=== PATIENT | female | born 2000 | race Caucasian/White ===

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

== ENCOUNTER → 2020-01-20 09:15 | Outpatient (BNVA) | payer BC, SELFPAY | PROVIDERS: Family Provider Family Medicine; PCP Internal Medicine Rheumatology; Visit Provider Internal Medicine | DX: M08.00 Unspecified juvenile rheumatoid arthritis of unspecified site (principal); D86.9 Sarcoidosis, unspecified; M32.9 Systemic lupus erythematosus, unspecified | CPT/HCPCS: 99203; 99204 ==

== ENCOUNTER 2020-01-20 14:45 | Outpatient (CLI) | payer BC, SELFPAY ==
[2020-01-20 15:34] LABS: Basophils # 0.1 10^3/uL (0.0-0.1); Basophils % 1.2 %; Eosinophils # 0.3 10^3/uL (0.0-0.8); Eosinophils % 5.4 %; Hematocrit 44.2 % (37.0-47.0); Hemoglobin 14.4 g/dL (11.5-15.3); Lymphocytes # 2.1 10^3/uL (1.5-6.5); Mean Corpuscular HGB Conc 32.6 g/dL (30.0-36.0); Mean Corpuscular Hemoglobin 27.8 pg (28.0-34.0); Mean Corpuscular Volume 85.3 fL (81-99); Mean Platelet Volume 10.9 fL (7.4-10.4); Monocytes # 0.3 10^3/uL (0.2-0.9); Monocytes % 6.4 %; Neutrophils # 2.36 10^3/uL (1.8-8.0); Neutrophils % 45.8 %; Nucleated Red Blood Cells % 0 %; Platelet Count 242 10^3/cmm (130-400); Red Blood Count 5.18 10^6/uL (4.1-5.3); Red Cell Distribution Width 11.9 % (12.1-15.1); White Blood Count 5.2 10^3/uL (4.5-13.0)
== END 2020-01-20 14:46 | disposition home or self-care (01) ==
LOC: LAB 14:50
PROVIDERS: PCP Nurse Practitioner; Visit Provider Nurse Practitioner
DX: Z00.00 Encounter for general adult medical examination without abnormal findings (principal); M08.00 Unspecified juvenile rheumatoid arthritis of unspecified site; D86.9 Sarcoidosis, unspecified
CPT/HCPCS: 36415; 81025; 85025; 87491; 87591; 87661

== ENCOUNTER 2020-01-20 14:50 | Outpatient (CLI) | payer BC, SELFPAY ==
[2020-01-20 15:55] LABS: Alanine Aminotransferase 19 U/L (0-33); Albumin Level 4.4 g/dL (3.5-5.2); Alkaline Phosphatase 78 IU/L (35-105); Anion Gap 13.8 (5-19); Aspartate Amino Transferase 23 U/L (0-32); Blood Urea Nitrogen 11 mg/dL (6-20); Calcium 9.6 mg/dL (8.5-10.5); Carbon Dioxide 25 mmol/L (22-29); Chloride 103 mmol/L (98-107); Globulin 3.3 g/dL (1.3-4.6); Glomerular Filtration Rate 107.8 mL/min (90-130); Glucose 87 mg/dL (65-115); Osmolality Calculated 285 mOsm/kg (285-295); Potassium 3.8 mmol/L (3.5-5.1); Sodium 138 mmol/L (136-145); Total Bilirubin 0.4 mg/dL (0.15-1.2); Total Protein 7.7 g/dL (6.6-8.7)
[2020-01-20 16:11] LABS: Hepatitis B Core AB, Total Non-Reactive (Nonreactive); Hepatitis B Surface Antigen Non-Reactive (Nonreactive); Hepatitis C Virus Antibody Non-Reactive (Nonreactive)
[2020-01-20 18:21] LABS: Erythrocyte Sedimentation Rate 10 mm/hr (0-15)
[2020-01-23 11:47] LABS: COMPLEMENT COMPONENT C3C 154 mg/dL (83-193); COMPLEMENT COMPONENT C4C 25 mg/dL (15-57); Quantiferon Mitogen >10.00 IU/mL; Quantiferon Nil 0.02 IU/mL; Quantiferon TB Gold NEGATIVE (NEGATIVE)
[2020-01-23 12:47] LABS: COMPLEMENT, TOTAL (CH50) >60 U/mL (31-60)
[2020-01-23 14:13] LABS: Cyclic Citrullinated Peptide <16 UNITS
[2020-01-23 19:43] LABS: HLA-B27 NEGATIVE (NEGATIVE)
[2020-01-24 14:28] LABS: ANA SCREEN, IFA NEGATIVE (NEGATIVE); CENTROMERE B ANTIBODY <1.0 NEG AI (<1.0 NEG); JO-1 ANTIBODY <1.0 NEG AI (<1.0 NEG); RNP ANTIBODY <1.0 NEG AI (<1.0 NEG); SCL-70 ANTIBODY <1.0 NEG AI (<1.0 NEG); SJOGREN'S ANTIBODY (SS-A) <1.0 NEG AI (<1.0 NEG); SM ANTIBODY <1.0 NEG AI (<1.0 NEG)
[2020-01-24 14:58] LABS: Factor Viii, Activity 71 % normal (50-180); Partial Thromboplastin Time, A 33 sec (22-34); Von Willebrand Factor Ag 108 % (50-217)
[2020-01-24 15:28] LABS: Von Willebrand Factor (Rcf) 105 % normal (42-200)
[2020-01-24 15:58] LABS: THYROID PEROXIDASE ANTIBODIES 75 IU/mL (<9)
[2020-01-27 15:07] LABS: DNA AB (DS) CRITHIDIA,IFA NEGATIVE (NEGATIVE)
== END 2020-01-20 14:51 | disposition home or self-care (01) ==
LOC: LAB 14:53
PROVIDERS: PCP Nurse Practitioner; Visit Provider Internal Medicine
DX: M08.00 Unspecified juvenile rheumatoid arthritis of unspecified site (principal); D86.9 Sarcoidosis, unspecified
CPT/HCPCS: 36415; 80053; 85240; 85245; 85246; 85651; 86431; 86480; 86704; 86803; 86812; 87340

== ENCOUNTER → 2020-09-06 08:57 | Outpatient (BNVA) | payer SELFPAY | PROVIDERS: PCP Nurse Practitioner; Visit Provider Internal Medicine | DX: Z79.899 Other long term (current) drug therapy (principal); M08.00 Unspecified juvenile rheumatoid arthritis of unspecified site | CPT/HCPCS: 36415; 80053; 85025; 85651; 86140 ==

== ENCOUNTER → 2020-09-13 14:29 | Outpatient (BNVA) | payer OTHER, SELFPAY | PROVIDERS: PCP Nurse Practitioner; Visit Provider Internal Medicine | DX: M08.00 Unspecified juvenile rheumatoid arthritis of unspecified site (principal); Z79.899 Other long term (current) drug therapy | CPT/HCPCS: 99213; 99214 ==

== ENCOUNTER → 2020-10-10 14:29 | Outpatient (BNVA) | payer OTHER, SELFPAY | PROVIDERS: PCP Nurse Practitioner; Visit Provider Nurse Practitioner | DX: R30.9 Painful micturition, unspecified (principal); Z91.89 Other specified personal risk factors, not elsewhere classified; N30.90 Cystitis, unspecified without hematuria | CPT/HCPCS: 81000; 81025; 87086; 87491; 87591; 87661 ==

== ENCOUNTER → 2020-10-24 10:04 | Outpatient (BNVA) | payer OTHER, SELFPAY | PROVIDERS: PCP Nurse Practitioner; Visit Provider Nurse Practitioner Women's Health | DX: N92.6 Irregular menstruation, unspecified (principal); Z11.3 Encounter for screening for infections with a predominantly sexual mode of transmission; Z01.419 Encounter for gynecological examination (general) (routine) without abnormal findings; Z30.014 Encounter for initial prescription of intrauterine contraceptive device | CPT/HCPCS: 84146; 84443; 84702; 87491; 87591; 87661 ==

== ENCOUNTER → 2020-10-30 14:02 | Outpatient (BNVA) | payer OTHER, SELFPAY | PROVIDERS: PCP Nurse Practitioner; Visit Provider Internal Medicine | DX: M08.00 Unspecified juvenile rheumatoid arthritis of unspecified site (principal); Z79.899 Other long term (current) drug therapy | CPT/HCPCS: 99213; 99214 ==

== ENCOUNTER → 2020-11-09 11:53 | Outpatient (BNVA) | payer OTHER, SELFPAY | PROVIDERS: PCP Nurse Practitioner; Visit Provider Nurse Practitioner Women's Health | DX: Z30.014 Encounter for initial prescription of intrauterine contraceptive device (principal) | CPT/HCPCS: 81025 ==

== ENCOUNTER → 2022-06-24 15:44 | Outpatient (BNVA) | payer MEDICAID, SELFPAY | PROVIDERS: PCP Clinical Nurse Specialist Adult Health; Visit Provider Internal Medicine | DX: M16.0 Bilateral primary osteoarthritis of hip (principal); M08.00 Unspecified juvenile rheumatoid arthritis of unspecified site | CPT/HCPCS: 36415; 73522; 80053; 82784; 83516; 85025; 85651; 86140 ==

== ENCOUNTER → 2023-05-20 14:57 | Outpatient (BNVA) | payer SELFPAY | PROVIDERS: PCP Clinical Nurse Specialist Adult Health; Visit Provider Nurse Practitioner Women's Health | DX: Z12.4 Encounter for screening for malignant neoplasm of cervix (principal) | CPT/HCPCS: 88175 ==

== ENCOUNTER → 2023-12-29 14:22 | Outpatient (BNVA) | payer OTHER, SELFPAY | PROVIDERS: PCP Family Medicine; Visit Provider Internal Medicine Rheumatology | DX: Z79.899 Other long term (current) drug therapy (principal); M06.09 Rheumatoid arthritis without rheumatoid factor, multiple sites | CPT/HCPCS: 36415; 80076; 82306; 82550; 85025; 86140 ==

== ENCOUNTER → 2024-01-31 10:43 | Outpatient (BNVA) | payer OTHER, MEDICAID, SELFPAY | PROVIDERS: PCP Family Medicine; Visit Provider Nurse Practitioner | DX: J02.9 Acute pharyngitis, unspecified (principal) | CPT/HCPCS: 87880 ==

== ENCOUNTER → 2024-05-26 15:31 | Outpatient (BNVA) | payer BC, SELFPAY | PROVIDERS: PCP Family Medicine; Visit Provider Nurse Practitioner Women's Health | DX: Z01.419 Encounter for gynecological examination (general) (routine) without abnormal findings (principal) | CPT/HCPCS: 88175 ==

== ENCOUNTER → 2024-06-03 16:15 | Outpatient (BNVA) | payer BC, SELFPAY | PROVIDERS: PCP Family Medicine; Visit Provider Emergency Medicine | DX: R39.9 Unspecified symptoms and signs involving the genitourinary system (principal) | CPT/HCPCS: 81000; 87086 ==

== ENCOUNTER → 2024-06-23 09:29 | Outpatient (BNVA) | payer BC, SELFPAY | PROVIDERS: PCP Family Medicine; Visit Provider Nurse Practitioner Women's Health | DX: Z30.014 Encounter for initial prescription of intrauterine contraceptive device (principal) | CPT/HCPCS: 81025 ==

== ENCOUNTER → 2024-08-16 10:34 | Outpatient (BNVA) | payer OTHER, MEDICAID, SELFPAY | PROVIDERS: PCP Family Medicine; Visit Provider Internal Medicine Rheumatology | DX: M06.09 Rheumatoid arthritis without rheumatoid factor, multiple sites (principal); Z79.899 Other long term (current) drug therapy | CPT/HCPCS: 36415; 80076; 82565; 85025; 85651; 86140 ==

== ENCOUNTER → 2024-08-26 16:42 | Outpatient (BNVA) | payer OTHER, MEDICAID, SELFPAY | PROVIDERS: PCP Family Medicine; Visit Provider Nurse Practitioner | DX: N92.6 Irregular menstruation, unspecified (principal); Z20.2 Contact with and (suspected) exposure to infections with a predominantly sexual mode of transmission | CPT/HCPCS: 80074; 81025; 87491; 87591; 87661; 87806 ==

== ENCOUNTER → 2024-08-27 16:42 | Outpatient (BNVA) | payer OTHER, MEDICAID, SELFPAY | PROVIDERS: PCP Family Medicine; Visit Provider Nurse Practitioner | DX: Z20.2 Contact with and (suspected) exposure to infections with a predominantly sexual mode of transmission (principal) | CPT/HCPCS: 87491; 87591 ==

== ENCOUNTER → 2025-01-27 16:18 | Outpatient (BNVA) | payer OTHER, MEDICAID, SELFPAY | PROVIDERS: PCP Family Medicine; Visit Provider Emergency Medicine | DX: Z20.2 Contact with and (suspected) exposure to infections with a predominantly sexual mode of transmission (principal) | CPT/HCPCS: 80074; 81513; 87389; 87481; 87491; 87591; 87661 ==

== ENCOUNTER → 2025-02-22 10:35 | Outpatient (BNVA) | payer OTHER, MEDICAID, SELFPAY | PROVIDERS: PCP Family Medicine; Visit Provider Internal Medicine Rheumatology | DX: Z79.899 Other long term (current) drug therapy (principal); M08.00 Unspecified juvenile rheumatoid arthritis of unspecified site; M06.09 Rheumatoid arthritis without rheumatoid factor, multiple sites | CPT/HCPCS: 36415; 80076; 82565; 85025; 85651; 86140; 86480 ==